=== PATIENT | female | born 1990 | race African-American/Black ===

== ENCOUNTER 2020-02-08 14:39 | Emergency (ER) | payer MEDICAID ==
--- NOTE | 2020-02-08 15:32 | ER Document Report ---
ED Medical Screen (RME) - General Chief Complaint: Pelvic Pain Stated Complaint: PELVIC PAIN Time Seen by Provider: 02/08/20 15:26 Mode of Arrival: Ambulatory Information source: Patient Notes: 29-year-old female presents to ED for complaint of pelvic pain with no vaginal bleeding. She states she is 4 late days late for her menstrual cycle. She states she did take 3 home and and they have all been negative but she is having level 4 out of 5 dull pain to her pelvic area. She is alert oriented respirations regular and unlabored speaking in full sentences. States she does not smoke she drinks very rarely and does not use any illicit drugs. She does work at a [email or web address] and lives alone. She does have a past medical history of anemia. I have greeted and performed a rapid initial assessment of this patient. A comprehensive ED assessment and evaluation of the patient, analysis of test results and completion of medical decision making process will be conducted by an additional ED providers. - Related Data Allergies/Adverse Reactions: No Known Allergies Allergy (Verified 02/08/20 15:26) Past Medical History - Social History Frequency of alcohol use: Rare Drug Abuse: None Physical Exam - Vital signs Vitals: Temp Pulse Resp BP Pulse Ox 99.1 F 75 16 111/63 100 02/08/20 14:44 02/08/20 14:44 02/08/20 14:44 02/08/20 14:44 02/08/20 14:44 Course - Vital Signs Vital signs: Temp Pulse Resp BP Pulse Ox 99.1 F 75 16 111/63 100 02/08/20 14:44 02/08/20 14:44 02/08/20 14:44 02/08/20 14:44 02/08/20 14:44
[2020-02-08 16:11] LABS: ABSOLUTE BASOPHILS # (AUTO) 0.1 10^3/uL (0.0-0.2); ABSOLUTE EOSINOPHILS # (AUTO) 0.1 10^3/uL (0.0-0.6); ABSOLUTE LYMPHOCYTES (AUTO) 1.8 10^3/uL (0.5-4.7); ABSOLUTE MONOCYTES (AUTO) 0.6 10^3/uL (0.1-1.4); ABSOLUTE NEUT (AUTO) 2.7 10^3/uL (1.7-8.2); BASOPHILS % (AUTO) 2.4 % (0-2); EOSINOPHILS % (AUTO) 2.3 % (0-6); HEMATOCRIT 28.6 % (36.0-47.0); HEMOGLOBIN 8.6 g/dL (12.0-15.5); LYMPHOCYTES % (AUTO) 34.4 % (13-45); MEAN CORPUSCULAR HEMOGLOBIN 18.2 pg (27.0-33.4); MEAN CORPUSCULAR HGB CONC 29.9 g/dL (32.0-36.0); MONOCYTES % (AUTO) 11.2 % (3-13); PLATELET COUNT 331 10^3/uL (150-450); SEGMENTED NEUTROPHILS % (AUTO) 49.7 % (42-78); TOTAL CELLS COUNTED % (AUTO) 100 %; WHITE BLOOD COUNT 5.4 10^3/uL (4.0-10.5)
[2020-02-08 16:14] LABS: APPEARANCE,URINE CLEAR; BILIRUBIN,URINE NEGATIVE (NEGATIVE); COLOR,URINE YELLOW; GLUCOSE, URINE NEGATIVE (NEGATIVE); KETONES,URINE NEGATIVE (NEGATIVE); LEUKOCYTE ESTERASE,URINE NEGATIVE (NEGATIVE); NITRITE,URINE NEGATIVE (NEGATIVE); PROTEIN,URINE NEGATIVE (NEGATIVE); URINE SPECIFIC GRAVITY 1.023; UROBILINOGEN,URINE NEGATIVE mg/dL (<2.0)
[2020-02-08 16:32] LABS: ALBUMIN 4.5 g/dL (3.5-5.0); ALKALINE PHOSPHATASE 51 U/L (38-126); ANION GAP 8 (5-19); ANISOCYTOSIS 2+; ASPARTATE AMINO TRANSFERASE 26 U/L (14-36); BILIRUBIN,TOTAL 0.3 mg/dL (0.2-1.3); BLOOD UREA NITROGEN 11 mg/dL (7-20); CALCIUM 9.4 mg/dL (8.4-10.2); CARBON DIOXIDE 25 mmol/L (22-30); CHLORIDE 105 mmol/L (98-107); GLUCOSE 79 mg/dL (75-110); HYPOCHROMASIA 3+; PLATELET COMMENT ADEQUATE; POTASSIUM 3.8 mmol/L (3.6-5.0); TOTAL PROTEIN 8.5 g/dL (6.3-8.2)
[2020-02-08 16:35] LABS: OVALOCYTES 1+; SCHISTOCYTES SLIGHT
[2020-02-08 16:37] LABS: TARGET CELLS 1+
[2020-02-08 16:38] LABS: MEAN CORPUSCULAR VOLUME 61 fl (80-97)
--- NOTE | 2020-02-08 18:52 | ER Document Report ---
ED General - General Chief Complaint: Pelvic Pain Stated Complaint: PELVIC PAIN Time Seen by Provider: 02/08/20 15:26 Mode of Arrival: Ambulatory - HPI Notes: Patient is a 29-year-old female with a history of anemia presents to the emergency department for evaluation of pelvic pain. It started last week. She states it was intermittent, seems to be more constant. It comes on for about 10 to 15 minutes at a time. It is sharp and squeezing. Nothing seems to make it better or worse. It resolves without any sort of intervention. She is states she is also 4 days late for her menstrual cycle. She denies any vaginal discharge or sores. No history of STIs. She states she does not want to have a pelvic exam done today, she wants to follow-up with her [employer] in regards to that issue. - Related Data Allergies/Adverse Reactions: No Known Allergies Allergy (Verified 02/08/20 15:26) Home Medications: Vitamins Past Medical History - General Information source: Patient Last Menstrual Period: 01/10/2020 - Social History Smoking Status: Never Smoker Frequency of alcohol use: Rare Drug Abuse: None Family History: Other - Mother with bipolar disorder - Medical History Medical History: Other - Anemia Surgical Hx: Negative Review of Systems - Review of Systems Female Genitourinary: See HPI -: Yes All other systems reviewed and negative Physical Exam - Vital signs Vitals: Temp Pulse Resp BP Pulse Ox 99.1 F 75 16 111/63 100 02/08/20 14:44 02/08/20 14:44 02/08/20 14:44 02/08/20 14:44 02/08/20 14:44 - Notes Notes: Vital signs reviewed, please refer to chart. Head is normocephalic, atraumatic. Pupils equal round, reactive to light. Neck is supple without meningismus. Heart is regular rate and rhythm. Lungs are clear to auscultation bilaterally. Abdomen is soft, nontender, normoactive bowel sounds throughout. Extremities without cyanosis, clubbing. Posterior calves are nontender. Peripheral pulses are equal. Skin is warm and dry. Patient is awake, alert, neurological exam is nonfocal. Course - Re-evaluation Re-evalutation: 02/08/20 18:53 Patient presents to the emergency department for evaluation of pelvic pain. She had laboratory investigations which revealed a anemia, which is not new. Her test is negative. I informed the patient that foregoing a pelvic exam was certainly within her rights to do, but it means that her work-up here is incomplete. She voiced understanding to this and still wishes to follow-up with her [employer] [facility]. I was able to convince her to have a transvaginal ultrasound to rule out ovarian torsion. She states her pain, when it is present, is severe. I would be worried about a large cyst or intermittent torsion causing her symptoms. Otherwise, patient is stable, we will continue to monitor. 02/08/20 20:46 Hemorrhagic ovarian cyst noted on the right. No evidence of torsion. Patient again has deferred any sort of pelvic exam, states she will follow-up with her [employer] in regards to this. She is otherwise to return to the emergency department with worsening or new concerning symptoms of any sort. - Vital Signs Vital signs: Temp Pulse Resp BP Pulse Ox 98.7 F 54 L 16 113/75 100 02/08/20 19:53 02/08/20 19:53 02/08/20 19:53 02/08/20 19:53 02/08/20 19:53 - Laboratory Result Diagrams: 02/08/20 15:57 02/08/20 15:57 Laboratory results interpreted by me: 02/08/20 02/08/20 15:57 15:57 Hgb 8.6 L Hct 28.6 L MCV 61 L MCH 18.2 L MCHC 29.9 L RDW 20.0 H Baso % (Auto) 2.4 H Total Protein 8.5 H - Diagnostic Test Radiology reviewed: Reports reviewed Radiology results interpreted by me: 02/08/20 20:46 Transvaginal US 02/08/20 18:50 IMPRESSION: No evidence of torsion Fibroid uterus Discharge - Discharge Clinical Impression: Hemorrhagic cyst of left ovary Condition: Stable Disposition: HOME, SELF-CARE Instructions: Pelvic Pain ([facility]), Ovarian Cyst ([facility]) Additional Instructions: A hemorrhagic ovarian cyst was identified on your ultrasound. No evidence of torsion was noted. As discussed, you deferred a pelvic exam. A pelvic exam is a vital part of a thorough evaluation of pelvic pain. Please follow-up with your [employer] [employer] [facility] for completion of this as discussed. Ibuprofen as needed for pain. Return to the emergency department with worsening or new concerning symptoms of any sort.
[2020-02-08 19:54] VITALS: BP 113/75
--- NOTE | 2020-02-08 20:17 | RADIOLOGY REPORT (SQ) ---
EXAM DESCRIPTION: CLINICAL HISTORY: 29 years Female L pelvic pain, eval for cyst/torsion COMPARISON: None. TECHNIQUE: Transvaginal duplex imaging performed to evaluate the pelvis. FINDINGS: Cervix measures 2.5 cm. Uterus measures 9.3 x 7.9 x 7.1 cm. Multiple fibroids are noted. Largest fibroid measures 5.6 x 4.7 x 4.4 cm on the left. Endometrium measures 1.2 cm. Right ovary measures 3 x 2.5 x 2.1 cm with normal blood flow. Left ovary measures 4.4 x 3.9 x 3.0 cm with normal blood flow. Complex appearing hemorrhagic cyst measuring 1.6 x 1.47 m. This is almost certainly benign and no follow-up is recommended. No free fluid. IMPRESSION: No evidence of torsion Fibroid uterus
[2020-02-09 13:25] LABS: PATH REVIEW PATHOLOGIST REVIEWED
== END 2020-02-08 20:58 | disposition home or self-care (01) ==
LOC: ER 14:39
DX: N83.202 Unspecified ovarian cyst, left side (principal); R10.2 Pelvic and perineal pain
CPT/HCPCS: 36415; 76830; 80053; 81001; 84702; 85025; 93976; 99284

== ENCOUNTER 2020-03-20 08:28 | Emergency (ER) | payer MEDICAID, OTHER ==
[2020-03-20] MEDS ORDERED: FENTANYL CITRATE INJ/PF 100 MCG/2 ML AMPUL IV ONE (09:49)
[2020-03-20] MEDS ORDERED: NORMAL SALINE 1000 ML 1,000 ML IV ONE (09:49)
[2020-03-20 10:12] LABS: APPEARANCE,URINE CLEAR; BILIRUBIN,URINE NEGATIVE (NEGATIVE); COLOR,URINE YELLOW; GLUCOSE, URINE NEGATIVE (NEGATIVE); KETONES,URINE NEGATIVE (NEGATIVE); LEUKOCYTE ESTERASE,URINE NEGATIVE (NEGATIVE); NITRITE,URINE NEGATIVE (NEGATIVE); PROTEIN,URINE NEGATIVE (NEGATIVE); URINE SPECIFIC GRAVITY 1.013; UROBILINOGEN,URINE NEGATIVE mg/dL (<2.0)
[2020-03-20] MEDS ORDERED: HYDROCODONE/ACETAMINOPHEN 5-325 MG TABLET PO ONE (10:15)
--- NOTE | 2020-03-20 10:30 | ER Document Report ---
ED GI/ - General Chief Complaint: Abdominal Pain Stated Complaint: FLANK PAIN Time Seen by Provider: 03/20/20 09:40 Primary Care Provider: [facility] [Provider Group] - Follow up as needed [facility] [Provider Group] - Follow up as needed Mode of Arrival: Ambulatory Information source: Patient Notes: Patient presents complaining of left lower quadrant abdominal tenderness that started this morning was sharp in nature. Patient denies any nausea vomiting or diarrhea. Patient denies any fever. Patient denies any urinary symptoms. Last bowel movement was today. Patient denies any vaginal bleeding or discharge. - HPI Patient complains to provider of: Pelvic pain. No: Diarrhea, Vomiting Onset: This morning Timing/Duration: Better Quality of pain: Sharp Pain Level: 3 Location: LLQ Vaginal bleeding (Compared to normal period): None Menstrual period history: denies: Sexual history: Active Associated symptoms: denies: Diarrhea, Dysuria, Fever, Nausea, Urinary h esitancy, Urinary frequency, Urinary retention, Urinary urgency, Vomiting Exacerbated by: Movement Relieved by: Denies Similar symptoms previously: No Recently seen / treated by doctor: No - Related Data Allergies/Adverse Reactions: No Known Allergies Allergy (Verified 02/08/20 15:26) Home Medications: multi vitamin/fish oil Past Medical History - General Information source: Patient - Social History Smoking Status: Never Smoker Chew tobacco use (# tins/day): No Frequency of alcohol use: Occasional Drug Abuse: None Occupation: [employer] Lives with: Spouse/Significant other Family History: Other - Mother with bipolar disorder Patient has homicidal ideation: No - Medical History Medical History: Negative Surgical Hx: Negative Review of Systems - Review of Systems Constitutional: No symptoms reported. denies: Fever EENT: No symptoms reported Cardiovascular: No symptoms reported Respiratory: No symptoms reported Gastrointestinal: Abdominal pain. denies: Diarrhea, Nausea, Vomiting Genitourinary: No symptoms reported. denies: Dysuria, Flank pain Female Genitourinary: Heavy/abnormal periods. denies: Vaginal discharge, Vaginal bleeding Musculoskeletal: No symptoms reported. denies: Back pain Skin: No symptoms reported Hematologic/Lymphatic: No symptoms reported Neurological/Psychological: No symptoms reported Physical Exam - Vital signs Vitals: Temp Pulse Resp BP Pulse Ox 98.3 F 121 H 18 98/60 L 100 03/20/20 08:35 03/20/20 08:35 03/20/20 08:35 03/20/20 08:35 03/20/20 08:35 Interpretation: No: Tachycardic Notes: Patient not tachycardic at this time. - General General appearance: Appears well, Alert In distress: None - Respiratory Respiratory status: No respiratory distress Chest status: Nontender Breath sounds: Normal. No: Rales, Rhonchi, Stridor, Wheezing Chest palpation: Normal - Cardiovascular Rhythm: Regular. No: Tachycardia Heart sounds: S1 appreciated, S2 appreciated - Abdominal Inspection: Normal Distension: No distension Bowel sounds: Normal Tenderness: Tender - Left lower pelvic tenderness Organomegaly: No organomegaly - Back Back: Normal, Nontender. No: CVA tenderness - Extremities General upper extremity: Normal inspection, Nontender, Normal strength General lower extremity: Normal inspection, Nontender, Normal strength - Neurological Neuro grossly intact: Yes Cognition: Normal [place] Coma Scale Eye Opening: Spontaneous [place] Coma Scale Verbal: Oriented [place] Coma Scale Motor: Obeys Commands [place] Coma Scale Total: 15 - Psychological Associated symptoms: Normal affect, Normal mood - Skin Skin Temperature: Warm Skin Moisture: Dry Skin Color: Normal Course - Re-evaluation Re-evalutation: 03/20/20 12:15 Abdomen soft, nontender, patient denies any pain symptoms at this time. Patient with anemia that is stable as compared to her prior visit. Patient states she knows she has anemia and has been compliant with taking her iron tablets. Patient denies any rectal bleeding or any other abnormal bleeding or bruising. Patient declines pelvic examination stating she just had one recently and did not test positive for any STI. Patient denies any concern about STI. Patient does have uterine fibroids noted on ultrasound. Patient encouraged to follow-up with gym manager for further evaluation of heavy menses. Patient presents with abdominal pain without signs of peritonitis or other life- threatening or serious etiology. Patient appears stable for discharge and has been instructed to return immediately if the symptoms worsen in any way. - Vital Signs Vital signs: Temp Pulse Resp BP Pulse Ox 98.3 F 121 H 12 107/84 100 03/20/20 12:55 03/20/20 08:35 03/20/20 12:46 03/20/20 12:46 03/20/20 12:46 - Laboratory Result Diagrams: 03/20/20 10:37 03/20/20 10:37 Laboratory results interpreted by me: 03/20/20 03/20/20 10:37 10:37 Hgb 8.8 L Hct 29.3 L MCV 62 L MCH 18.5 L MCHC 30.0 L RDW 21.4 H Plt Count 554 H Baso % (Auto) 2.3 H AST 82 H Labs- All tests 24 hr 03/20/20 03/20/20 03/20/20 09:45 10:37 10:37 WBC 4.8 RBC 4.75 Hgb 8.8 L Hct 29.3 L MCV 62 L MCH 18.5 L MCHC 30.0 L RDW 21.4 H Plt Count 554 H Lymph % (Auto) 37.3 Emanuel % (Auto) 8.7 Eos % (Auto) 3.3 Baso % (Auto) 2.3 H Absolute Neuts (auto) 2.3 Absolute Lymphs (auto) 1.8 Absolute Monos (auto) 0.4 Absolute Eos (auto) 0.2 Absolute Basos (auto) 0.1 Seg Neutrophils % 48.4 Toxic Vacuolation PRESENT Large Platelets PRESENT Platelet Comment INCREASED Polychromasia SLIGHT Hypochromasia 2+ Poikilocytosis 1+ Basophilic Stippling PRESENT Anisocytosis 3+ Microcytosis 3+ Target Cells SLIGHT Tear Drop Cells SLIGHT Ovalocytes 1+ Schistocytes SLIGHT Sodium 139.7 Potassium 4.3 Chloride 106 Carbon Dioxide 27 Anion Gap 7 BUN 7 Creatinine 0.63 Est GFR ( Amer) > 60 Est GFR (MDRD) Non-Af > 60 Glucose 87 Calcium 9.5 Total Bilirubin 0.3 Direct Bilirubin 0.0 Neonat Total Bilirubin Not Reportable Neonat Direct Bilirubin Not Reportable Neonat Indirect Bili Not Reportable AST 82 H ALT 31 Alkaline Phosphatase 51 Total Protein 8.1 Albumin 4.4 Lipase 81.1 Serum HCG, Qual Urine Color YELLOW Urine Appearance CLEAR Urine pH 6.0 Ur Specific [place] 1.013 Urine Protein NEGATIVE Urine Glucose (UA) NEGATIVE Urine Ketones NEGATIVE Urine Blood NEGATIVE Urine Nitrite NEGATIVE Urine Bilirubin NEGATIVE Urine Urobilinogen NEGATIVE Ur Leukocyte Esterase NEGATIVE Urine WBC (Auto) 1 Squamous Epi Cells Auto 1 Urine Mucus (Auto) RARE Urine Ascorbic Acid NEGATIVE 03/20/20 10:37 WBC RBC Hgb Hct MCV MCH MCHC RDW Plt Count Lymph % (Auto) Emanuel % (Auto) Eos % (Auto) Baso % (Auto) Absolute Neuts (auto) Absolute Lymphs (auto) Absolute Monos (auto) Absolute Eos (auto) Absolute Basos (auto) Seg Neutrophils % Toxic Vacuolation Large Platelets Platelet Comment Polychromasia Hypochromasia Poikilocytosis Basophilic Stippling Anisocytosis Microcytosis Target Cells Tear Drop Cells Ovalocytes Schistocytes Sodium Potassium Chloride Carbon Dioxide Anion Gap BUN Creatinine Est GFR ( Amer) Est GFR (MDRD) Non-Af Glucose Calcium Total Bilirubin Direct Bilirubin Neonat Total Bilirubin Neonat Direct Bilirubin Neonat Indirect Bili AST ALT Alkaline Phosphatase Total Protein Albumin Lipase Serum HCG, Qual NEGATIVE Urine Color Urine Appearance Urine pH Ur Specific [place] Urine Protein Urine Glucose (UA) Urine Ketones Urine Blood Urine Nitrite Urine Bilirubin Urine Urobilinogen Ur Leukocyte Esterase Urine WBC (Auto) Squamous Epi Cells Auto Urine Mucus (Auto) Urine Ascorbic Acid Reviewed labs from patient's previous ER visit - Diagnostic Test Radiology reviewed: Reports reviewed Discharge - Discharge Clinical Impression: Chronic anemia, Resolved abdominal pain Condition: Stable Disposition: HOME, SELF-CARE Instructions: Abdominal Pain ([facility]), Anemia ([facility]) Additional Instructions: Return immediately for any new or worsening symptoms Followup with your primary care provider, call tomorrow to make a followup appointment Follow-up with a gym manager for further evaluation management of your anemia. Prescriptions: Ferrous Sulfate [Feosol 325 mg Tablet] 325 mg PO TID #90 tab Naproxen [Naprosyn 250 Nmg Tablet] 1 tab PO BID #14 tablet Forms: Return to Work Referrals: [facility] [Provider Group] - Follow up as needed [facility] [Provider Group] - Follow up as needed
[2020-03-20 10:55] LABS: ABSOLUTE BASOPHILS # (AUTO) 0.1 10^3/uL (0.0-0.2); ABSOLUTE EOSINOPHILS # (AUTO) 0.2 10^3/uL (0.0-0.6); ABSOLUTE LYMPHOCYTES (AUTO) 1.8 10^3/uL (0.5-4.7); ABSOLUTE MONOCYTES (AUTO) 0.4 10^3/uL (0.1-1.4); ABSOLUTE NEUT (AUTO) 2.3 10^3/uL (1.7-8.2); BASOPHILS % (AUTO) 2.3 % (0-2); EOSINOPHILS % (AUTO) 3.3 % (0-6); HEMATOCRIT 29.3 % (36.0-47.0); HEMOGLOBIN 8.8 g/dL (12.0-15.5); LYMPHOCYTES % (AUTO) 37.3 % (13-45); MEAN CORPUSCULAR HEMOGLOBIN 18.5 pg (27.0-33.4); MONOCYTES % (AUTO) 8.7 % (3-13); PLATELET COUNT 554 10^3/uL (150-450); RED BLOOD COUNT 4.75 10^6/uL (3.72-5.28); RED CELL DISTRIBUTION WIDTH 21.4 % (11.5-14.0); SEGMENTED NEUTROPHILS % (AUTO) 48.4 % (42-78); TOTAL CELLS COUNTED % (AUTO) 100 %; WHITE BLOOD COUNT 4.8 10^3/uL (4.0-10.5)
[2020-03-20 11:02] LABS: MEAN CORPUSCULAR VOLUME 62 fl (80-97)
[2020-03-20 11:16] LABS: ALBUMIN 4.4 g/dL (3.5-5.0); ALKALINE PHOSPHATASE 51 U/L (38-126); ANION GAP 7 (5-19); ASPARTATE AMINO TRANSFERASE 82 U/L (14-36); BILIRUBIN,TOTAL 0.3 mg/dL (0.2-1.3); BLOOD UREA NITROGEN 7 mg/dL (7-20); CALCIUM 9.5 mg/dL (8.4-10.2); CARBON DIOXIDE 27 mmol/L (22-30); CHLORIDE 106 mmol/L (98-107); GLUCOSE 87 mg/dL (75-110); POTASSIUM 4.3 mmol/L (3.6-5.0); TOTAL PROTEIN 8.1 g/dL (6.3-8.2)
[2020-03-20 11:27] LABS: ANISOCYTOSIS 3+; HYPOCHROMASIA 2+; OVALOCYTES 1+; PLATELET LARGE PRESENT; POIKILOCYTOSIS 1+; POLYCHROMASIA SLIGHT; SCHISTOCYTES SLIGHT; TARGET CELLS SLIGHT; TEAR DROP CELLS SLIGHT; TOXIC VACUOLATION PRESENT
[2020-03-20 11:28] LABS: PLATELET COMMENT INCREASED
--- NOTE | 2020-03-20 11:58 | RADIOLOGY REPORT (SQ) ---
EXAM DESCRIPTION: U/S NON OB PEL TV W/DOPPLER IMAGES COMPLETED DATE/TIME: 03/20/2020 11:44 am REASON FOR STUDY: LLQ pain COMPARISON: 02/08/2020 TECHNIQUE: Dynamic and static grayscale images acquired of the pelvis via transvaginal approach and recorded on PACS. Additional selected color Doppler and spectral images recorded. LIMITATIONS: None. FINDINGS: UTERUS: Multiple uterine fibroids. The largest measures 3.4 x 3.2 x 3.3 cm. ENDOMETRIAL STRIPE: No focal or generalized thickening. No masses. CERVIX: No nabothian cysts. RIGHT OVARY AND DOPPLER: Normal size. No worrisome masses. Normal arterial vascular flow without evid ence for torsion. There is a simple 2.1 x 1.6 x 1.4 cm cyst. LEFT OVARY AND DOPPLER: Normal size. No worrisome masses. Normal arterial vascular flow without evide nce for torsion. FREE FLUID: None noted. OTHER: No other significant finding. MEASUREMENTS: UTERUS: 8.8 x 7.6 x 6.8 cm. ENDOMETRIAL STRIPE: 2.0 mm. RIGHT OVARY: 3.6 x 2.7 x 3.2 cm. LEFT OVARY: 4.1 x 2.1 x 2.7 cm. IMPRESSION: Uterine fibroids. Simple small right ovarian cyst. No other significant findings. TECHNICAL DOCUMENTATION: JOB ID: [id number] [employer]- All Rights Reserved Rev-12/19 Reading location - IP/workstation name: [email or web address]
[2020-03-20 12:49] VITALS: BP 107/84
[2020-03-21 12:10] LABS: PATH REVIEW PATHOLOGIST REVIEWED
== END 2020-03-20 12:58 | disposition home or self-care (01) ==
LOC: ER 08:28
DX: D25.9 Leiomyoma of uterus, unspecified (principal); N83.291 Other ovarian cyst, right side; D64.9 Anemia, unspecified; Z79.899 Other long term (current) drug therapy; N92.0 Excessive and frequent menstruation with regular cycle
CPT/HCPCS: 99285; 96361; 96374; 36415; 83690; 84703; 85025; 80053; 81001; 76830; 93976; J7030